=== PATIENT | male | born 1955 | race Caucasian/White ===

== ENCOUNTER → 2025-01-03 19:07 | Outpatient (REF) | payer MEDICARE, SELFPAY | LOC: MRI 3T 19:07 | PROVIDERS: ATTENDING PHYSICIAN Pain Medicine Interventional Pain Medicine; FAMILY PHYSICIAN Internal Medicine | DX: M54.16 Radiculopathy, lumbar region (principal) | CPT/HCPCS: 72148 ==

== ENCOUNTER → 2025-05-29 09:35 | Outpatient (REF) | payer MEDICARE, SELFPAY | LOC: RAD 09:35 | PROVIDERS: ATTENDING PHYSICIAN Specialist; FAMILY PHYSICIAN Nurse Practitioner Adult Health | DX: Z01.818 Encounter for other preprocedural examination (principal) | CPT/HCPCS: 93005 ==